=== PATIENT | male | born 1935 | race Two or more races ===

== ENCOUNTER 2018-06-12 10:34 | Emergency (ER) | payer OTHER ==
[~2018-06-12] VITALS: Ht 177.8 cm; Wt 101.2 kg
[~2018-06-12 10:34] MED LIST: ASA-EC81 MG; B COMPLETE1 TAB; C COMPLEX500 MG; CYMBALTA60 MG; LISINOPRIL20 MG
== END 2018-06-12 15:33 | disposition home or self-care (01) ==
LOC: ER 10:34
DX: R68.89 Other general symptoms and signs (principal); R44.0 Auditory hallucinations; G47.8 Other sleep disorders; F41.8 Other specified anxiety disorders; F32.89 Other specified depressive episodes